=== PATIENT | male | born 1990 | race Caucasian/White ===

== ENCOUNTER 2017-03-06 13:01 | Emergency (ER) | payer SELFPAY ==
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
[2017-03-06 14:35] LABS: ABSOLUTE EOSINOPHILS # (AUTO) 0.1 10^3/uL (0.0-0.6); ABSOLUTE LYMPHOCYTES (AUTO) 1.7 10^3/uL (0.5-4.7); ABSOLUTE MONOCYTES (AUTO) 0.4 10^3/uL (0.1-1.4); ABSOLUTE NEUT (AUTO) 5.4 10^3/uL (1.7-8.2); BASOPHILS % (AUTO) 0.5 % (0-2); EOSINOPHILS % (AUTO) 1.9 % (0-6); HEMATOCRIT 49.5 % (37.9-51.0); HGB HCT DIFFERENCE 1.5; LYMPHOCYTES % (AUTO) 21.9 % (13-45); MEAN CORPUSCULAR HGB CONC 34.3 g/dL (32.0-36.0); MEAN CORPUSCULAR VOLUME 90 fl (80-97); MONOCYTES % (AUTO) 4.6 % (3-13); RED BLOOD COUNT 5.47 10^6/uL (4.35-5.55); RED CELL DISTRIBUTION WIDTH 13.5 % (11.5-14.0); SEGMENTED NEUTROPHILS % (AUTO) 71.1 % (42-78); WHITE BLOOD COUNT 7.6 10^3/uL (4.0-10.5)
[2017-03-06 14:55] LABS: ALANINE AMINOTRANSFERASE 25 U/L (21-72); ALBUMIN 5.8 g/dL (3.5-5.0); ALKALINE PHOSPHATASE 68 U/L (38-126); ASPARTATE AMINO TRANSFERASE 23 U/L (17-59); BILIRUBIN,DIRECT 0.3 mg/dL (0.0-0.4); BILIRUBIN,TOTAL 1.5 mg/dL (0.2-1.3); BLOOD UREA NITROGEN 19 mg/dL (7-20); CALCIUM 10.9 mg/dL (8.4-10.2); CHLORIDE 104 mmol/L (98-107); CREATININE RESULT 1.02 mg/dL (0.52-1.25); GLUCOSE 95 mg/dL (75-110); POTASSIUM 3.9 mmol/L (3.6-5.0); TOTAL PROTEIN 8.5 g/dL (6.3-8.2)
[2017-03-06 15:14] LABS: CREATINE KINASE MB < 0.22 ng/mL (<4.55); TROPONIN I < 0.012 ng/mL
[2017-03-06 15:22] LABS: CARBON DIOXIDE 19 mmol/L (22-30); SODIUM 145.5 mmol/L (137-145)
[2017-03-06 15:32] LABS: ANION GAP 23 (5-19)
--- NOTE | 2017-03-06 17:10 | ER Document Report ---
ED Cardiac - General Mode of Arrival: Ambulatory Information source: Patient TRAVEL OUTSIDE OF THE [place] IN LAST 30 DAYS: No - HPI Patient complains to provider of: Chest pain Associated symptoms: Other - See above <SUZE ARGUETA - Last Filed: 03/06/17 19:34> <CARLOS MANUELNENA ANN - Last Filed: 03/06/17 23:28> - General Chief Complaint: Chest Pain Stated Complaint: CHEST PAIN Notes: Patient is a 26 year old male who presents to the emergency department complaining of chest pain onset at 1000 this morning. Patient reports that the pain is intermittent and sharp and he has a constant discomfort in the center of his chest like a knot. Patient denies any new medications, new supplements, or new activities. Patient also reports shortness of breath with the episodes and anxiety following the pain. Patient denies cough, fever, and abdominal pain. (SUZE ARGUETA) - Related Data Allergies/Adverse Reactions: No Known Allergies Allergy (Verified 03/06/17 13:44) Past Medical History - General Information source: Patient - Social History Smoking Status: Unknown if Ever Smoked Chew tobacco use (# tins/day): No Frequency of alcohol use: None Drug Abuse: Marijuana - past Family History: Reviewed & Not Pertinent Patient has suicidal ideation: No Patient has homicidal ideation: No Surgical Hx: Negative - Immunizations Hx Diphtheria, Pertussis, Tetanus Vaccination: No <SUZE ARGUETA - Last Filed: 03/06/17 19:34> Review of Systems - Review of Systems Constitutional: denies: Fever EENT: No symptoms reported Cardiovascular: See HPI, Chest pain Respiratory: See HPI, Short of breath. denies: Cough Gastrointestinal: denies: Abdominal pain Genitourinary: No symptoms reported Male Genitourinary: No symptoms reported Musculoskeletal: No symptoms reported Skin: No symptoms reported Hematologic/Lymphatic: No symptoms reported Neurological/Psychological: No symptoms reported -: Yes All other systems reviewed and negative <SUZE ARGUETA - Last Filed: 03/06/17 19:34> Physical Exam - Vital signs Interpretation: Normal - General General appearance: Appears well, Alert - HEENT Head: Normocephalic, Atraumatic Eyes: Normal Pupils: PERRL - Respiratory Respiratory status: No respiratory distress Chest status: Tender - anterior chest wall pain, reproducible Breath sounds: Normal Chest palpation: Normal - Cardiovascular Rhythm: Regular Heart sounds: Normal auscultation Murmur: No - Abdominal Inspection: Normal Distension: No distension Bowel sounds: Normal Tenderness: Nontender Organomegaly: No organomegaly - Back Back: Normal, Nontender - Extremities General upper extremity: Normal inspection, Nontender, Normal color, Normal ROM , Normal temperature General lower extremity: Normal inspection, Nontender, Normal color, Normal ROM , Normal temperature, Normal weight bearing. No: Elisabeth's sign - Neurological Neuro grossly intact: Yes Cognition: Normal Orientation: AAOx4 Wendie Coma Scale Eye Opening: Spontaneous Wendie Coma Scale Verbal: Oriented Wendie Coma Scale Motor: Obeys Commands Wendie Coma Scale Total: 15 Speech: Normal Motor strength normal: LUE, RUE, LLE, RLE Sensory: Normal - Psychological Associated symptoms: Normal affect, Normal mood - Skin Skin Temperature: Warm Skin Moisture: Dry Skin Color: Normal <NENA HOROWITZ - Last Filed: 03/06/17 23:28> - Vital signs Vitals: Temp Pulse Resp BP Pulse Ox 97.7 F 64 16 143/92 H 100 03/06/17 13:43 03/06/17 13:43 03/06/17 13:43 03/06/17 13:43 03/06/17 13:43 Course - Laboratory Result Diagrams: 03/06/17 14:10 03/06/17 14:10 <SUZE ARGUETA - Last Filed: 03/06/17 19:34> - Laboratory Result Diagrams: 03/06/17 14:10 03/06/17 14:10 - Diagnostic Test Radiology reviewed: Reports reviewed - EKG Interpretation by [facility] EKG shows normal: Sinus rhythm Rate: Normal Rhythm: NSR <NENA HOROWITZ - Last Filed: 03/06/17 23:28> - Re-evaluation Re-evalutation: 03/06/17 Patient with no acute findings on chest x-ray, EKG, blood work. Reproducible chest wall pain. Recommend naproxen. Follow-up with PMD. Return if any worsening or concerning symptoms. Stable for discharge. (NENA HOROWITZ) - Vital Signs Vital signs: Temp Pulse Resp BP Pulse Ox 97.7 F 64 17 119/75 97 03/06/17 13:43 03/06/17 13:43 03/06/17 19:01 03/06/17 19:01 03/06/17 19:01 - Laboratory Laboratory results interpreted by me: 03/06/17 14:10 Sodium 145.5 H Carbon Dioxide 19 L Anion Gap 23 H Calcium 10.9 H Total Bilirubin 1.5 H Total Protein 8.5 H Albumin 5.8 H Discharge <SUZE ARGUETA - Last Filed: 03/06/17 19:34> <NENA HOROWITZ - Last Filed: 03/06/17 23:28> - Discharge Clinical Impression: Atypical chest pain Condition: Stable Disposition: HOME, SELF-CARE Instructions: Chest Pain of Unclear Cause ([facility]), Chest Wall Pain ([facility]) Additional Instructions: Please take naproxen as directed on the bottle for the pain you're experiencing. Please return if you have any further concerns or symptoms. Forms: Return to Work Scribe Attestation: 03/06/17 23:28 I personally performed the services described in the documentation, reviewed and edited the documentation which was dictated to the scribe in my presence, and it accurately records my words and actions. (NENA HOROWITZ) Scribe Documentation - Scribe Written by Mihai:: mihai Chahal, 03/06/17, 1940 acting as scribe for :: Carlos Manuel <SUZE ARGUETA - Last Filed: 03/06/17 19:34>
--- NOTE | 2017-03-06 18:52 | EKG REPORT ---
SEVERITY:- NORMAL ECG - SINUS RHYTHM : Confirmed by: Adiel Bradford MD 06-Mar-2017 18:51:45
[2017-03-06 19:04] VITALS: BP 119/75
== END 2017-03-06 19:07 | disposition home or self-care (01) ==
LOC: ER 13:01
DX: R07.9 Chest pain, unspecified (principal); R06.02 Shortness of breath; F41.9 Anxiety disorder, unspecified
CPT/HCPCS: 36415; 71020; 80053; 82550; 82553; 84443; 84484; 85025; 93005; 93010; 99285